=== PATIENT | female | born 1990 | race African-American/Black ===

== ENCOUNTER 2019-02-22 20:21 | Emergency (ER) | payer SELFPAY ==
[~2019-02-22] VITALS: Ht 165.1 cm; Wt 72.6 kg
[2019-02-22 21:01] VITALS: BP 134/74
[2019-02-22] MEDS ORDERED: KETOROLAC TROMETHAMINE INJ 30 MG/ML VIAL ONE (21:29)
[2019-02-22] MEDS ORDERED: KETOROLAC TROMETHAMINE INJ 60 MG/2 ML VIAL IM ONE (21:30)
== END 2019-02-22 21:38 | disposition home or self-care (01) ==
LOC: ER 20:27
DX: S23.3XXA Sprain of ligaments of thoracic spine, initial encounter (principal); S16.1XXA Strain of muscle, fascia and tendon at neck level, initial encounter; S70.12XA Contusion of left thigh, initial encounter; J45.909 Unspecified asthma, uncomplicated; Z60.2 Problems related to living alone; V49.49XA Driver injured in collision with other motor vehicles in traffic accident, initial encounter; Y93.89 Activity, other specified; Y92.413 State road as the place of occurrence of the external cause; Y99.8 Other external cause status
CPT/HCPCS: 96372; 99283; J1885